=== PATIENT | female | born 1955 | race Caucasian/White ===

== ENCOUNTER 2017-02-10 13:23 | Emergency (ER) | payer BC ==
--- NOTE | 2017-02-10 13:29 | EDM.PDOC ---
ED HPI GENERAL MEDICAL PROBLEM - General Chief Complaint: General Stated Complaint: LOW HEMOGLOBIN Time Seen by Provider: 02/10/17 13:29 Source of Information: Reports: Patient History Limitations: Reports: No limitations - History of Present Illness INITIAL COMMENTS - FREE TEXT/NARRATIVE: 62-year-old female presents the ED after being called by her primary care physician about blood draw she haddone yesterday. Identified that her hemoglobin is low at 6.7. MCV is 67 suggesting significant iron deficiency. Patient has had about 60% of her stomach resected in the past due to peptic ulcer disease with perforation many years ago the lab work also identified incomplete treatment of her thyroid replacement with a TSH of 10.7. White count 6.1 with a normal differential platelets are normal in therapy to 6000. She reports she is O- blood type and is Rh sensitized because she did not get RhoGAM within 72 hours of one of her pregnancies. She is also vitamin D. deficient. Her level came back at 7 therefore she presents primarily for blood transfusion. She appreciates significant fatigue and dyspnea on minimal exertion. The patient has end-stage COPD still smoking a pack and a half of cigarettes per day. She reports her last colonoscopy was within the last year and was considered normal. Onset: gradual, unknown/unsure (Identify data low hemoglobin on routine laboratory drawn yesterday at the clinic.) Duration: Chronic Severity: moderate Improves with: Reports: Rest Worsens with: Reports: Movement (Walking up stairs is difficult as she becomes extremely short of breath.) Context: Denies: Activity, Exercise, Lifting, Sick contact, Trauma Associated Symptoms: Reports: cough, cough w sputum (Chronic smokers cough. Wound sputum almost every morning. His inhaler at least twice daily. Has end- stage COPD. Continues to smoke a pack and half cigarettes per day.), malaise, weakness (Place of really easy.), other (Does have bilateral lower extremity pain in her legs and restless legs.). 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: Reports: Other (see below) (Does not take NSAIDs.) - Related Data Allergies Allergy/AdvReac Type Severity Reaction Status Date / Time No Known Allergies Allergy Verified 02/10/17 13:35 Home Meds: Home Meds Albuterol [IJD: Ventolin HFA] 2 puff INH ASDIRECTED PRN 02/10/17 [History] Cholecalciferol (Vitamin D3) [Vitamin D3] 10,000 unit PO DAILY #42 capsule 02/10 [Rx] Ferrous Sulfate [Iron] 325 mg PO TUFR 02/10/17 [History] Fluticasone/Vilanterol [Breo Ellipta 200-25 Mcg INH] 1 puff INH DAILY 02/10/17 [ History] Levothyroxine Sodium [Levo-T] 150 mcg PO DAILY #90 tablet 02/10/17 [Rx] Levothyroxine Sodium [Levothyroxine Sodium] 100 mcg PO DAILY 02/10/17 [History] Magnesium Oxide [Magnesium] 500 mg PO ASDIRECTED PRN 02/10/17 [History] Montelukast [Singulair] 10 mg PO DAILY 02/10/17 [History] guaiFENesin [Mucus Relief] 400 mg PO DAILY 02/10/17 [History] Past Medical History Respiratory History: Reports: Bronchitis, recurrent, COPD (End-stage COPD. Continues to smoke cigarettes. Not on home oxygen therapy) Gastrointestinal History: Reports: GERD (Uses Prilosec daily. For reflux disease. Occasionally has to use TUMS or Rolaids), PUD (Referred of peptic ulcer disease and apparently had 60% of her stomach removed in the past. This is in the 70s.), Other (see below) Musculoskeletal History: Reports: Arthritis, Back pain, chronic (Recently identified to be vitamin D deficient.), Osteoarthritis, Osteoporosis, Other ( see below) Endocrine/Metabolic History: Reports: Hypothyroidism (TSH done yesterday is 10.7 indicating that she is inadequately treated with supplement.), Osteopenia, Osteoporosis, Vitamin D deficiency - Past Surgical History GI Surgical History: Reports: Cholecystectomy, Colonoscopy (Last one was within the last year no polyps identified), Other (see below) (Emergency surgery for perforated gastric ulcer in the 70s required removal of about 60% of her stomach.) Social & Family History - Living Situation & Occupation Living situation: Reports: Occupation: retired ED ROS GENERAL - Review of Systems Review Of Systems: See Below Constitutional: Reports: malaise, weakness, fatigue. Denies: fever, chills, decreased appetite, weight loss HEENT: Reports: No symptoms, Glasses Respiratory: Reports: Shortness of Breath, Cough (Chronically chronically due to COPD and chronic bronchitis), Sputum. Denies: Hemoptysis (Usually brown) Cardiovascular: Reports: Dyspnea on exertion (Chronic), Lightheadedness. Denies : Blood pressure problem, Claudication, Orthopnea Endocrine: Reports: fatigue (Has to watch how fat she gets up at times.) GI/Abdominal: Reports: Black stool (Only when she takes her iron pills.). Denies: Abdominal pain, Anorexia, Bloody stool, Constipation, Difficulty swallowing, Distension, Flatus, Hematemesis, Hematochezia, Melena, Nausea, Other : Reports: frequency Musculoskeletal: Reports: back pain Skin: Reports: pallor Neurological: Reports: Dizziness (Occasional), Paresthesia (In her feet at times.), Other (Aching pain in the calves and bones in her legs with some restless leg syndrome.) Psychiatric: Reports: No symptoms Hematologic/Lymphatic: Reports: no symptoms ED EXAM, GENERAL - Physical Exam Exam: See Below Exam Limited By: No limitations General Appearance: alert, WD/WN, no apparent distress Eye Exam: bilateral eye: other (Bilateral blepharal pallor.) Ears: normal TMs Nose: other (Skin grafting has been done to her nose because of skin cancer in the past) Throat/Mouth: Normal inspection, Normal oropharynx. No: Normal teeth Head: atraumatic, normocephalic Neck: normal inspection, supple, non-tender, full range of motion. No: carotid bruit, lymphadenopathy (L), lymphadenopathy (R) Respiratory/Chest: decreased breath sounds (Sounds are diminished in the posterior 60% a lung ang. No adventitial sounds were noted at this time). No : lungs clear, normal breath sounds, chest non-tender, respiratory distress, rhonchi, wheezing Cardiovascular: no edema, no gallop, no murmur (Grade 1-2 systolic ejection murmur heard best at the left lower sternal border.). No: normal peripheral pulses Peripheral Pulses: 0: posterior tibial (L), posterior tibial (R), dorsalis pedis (L), dorsalis pedis (R) GI/Abdominal: normal bowel sounds, soft, non tender, no organomegaly Back Exam: normal inspection, full range of motion. No: CVA tenderness (L), CVA tenderness (R) Extremities: normal inspection, normal range of motion, non-tender, no pedal edema Neurological: alert, oriented, CN II-XII intact, normal cognition, normal gait Psychiatric: normal affect, normal mood Skin Exam: Warm, Dry, Intact, Pallor (Mild pallor.) Course - Vital Signs Last Recorded V/S: Last Vital Signs Temp 36.9 C 02/10/17 13:32 Pulse 78 02/10/17 16:05 Resp 17 02/10/17 16:05 BP 132/106 H 02/10/17 16:05 Pulse Ox 97 02/10/17 16:05 - Orders/Labs/Meds Orders: Active Orders 24 hr Category Date Time Status PACKED CELLS [RED BLOOD CELLS LP] [BBK] Stat Lab 02/10/17 14:10 Results TYPE AND SCREEN [BBK] Stat Lab 02/10/17 14:10 Results Transfuse PRBC [Transfuse Red Blood Cells] [COMM] Oth 02/10/17 13:52 Ordered Urgent Labs: Laboratory Tests 02/10/17 02/10/17 02/10/17 Range/Units 14:10 14:10 14:10 WBC 4.42 (3.98-10.04) K/mm3 RBC 3.73 L (3.98-5.22) M/mm3 Hgb 6.9 L* (11.2-15.7) gm/L Hct 27.3 L (34.1-44.9) % MCV 73.2 L (79.4-94.8) fl MCH 18.5 L (25.6-32.2) pg MCHC 25.3 L (32.2-35.5) g/dl RDW Std Deviation 53.2 H (36.4-46.3) fL Plt Count 380 H (182-369) K/mm3 MPV 8.8 L (9.4-12.3) fl Neutrophils % (Manual) 45 (40-60) % Band Neutrophils % 0 (0-10) % Lymphocytes % (Manual) 41 H (20-40) % Atypical Lymphs % 0 % Monocytes % (Manual) 11 H (2-10) % Eosinophils % (Manual) 3 (0.7-5.8) % Basophils % (Manual) 0 L (0.1-1.2) Platelet Estimate Adequate Plt Morphology Comment See note Polychromasia 1+ slight Poikilocytosis 3+ marked Anisocytosis 2+ moderate Microcytosis 2+ moderate Macrocytosis 1+ slight Target Cells 1+ slight Tear Drop Cells 1+ slight Ovalocytes 1+ slight Stomatocytes 2+ moderate RBC Morph Comment Abnormal PT 11.0 (8.0-13.0) SECONDS INR 1.01 Sodium 140 (136-145) mEq/L Potassium 4.2 (3.5-5.1) mEq/L Chloride 104 (98-107) mEq/L Carbon Dioxide 26 (21-32) mEq/L Anion Gap 14.2 (5-15) BUN 9 (7-18) mg/dL Creatinine 0.7 (0.55-1.02) mg/dL Est Cr Clr Drug Dosing 54.78 mL/min Estimated GFR (MDRD) > 60 (>60) mL/min BUN/Creatinine Ratio 12.9 L (14-18) Glucose 92 (80-115) mg/dL Calcium 8.8 (8.5-10.1) mg/dL Iron (50-170) ug/dL TIBC (100-400) ug/dL % Saturation (20-55) % Transferrin (202-364) mg/dL Ferritin (8-252) ng/ml Total Bilirubin 0.4 (0.2-1.0) mg/dL AST 20 (15-37) U/L ALT 23 (14-59) U/L Alkaline Phosphatase 76 (46-116) U/L B-Natriuretic Peptide (0-100) pg/mL Total Protein 6.8 (6.4-8.2) g/dl Albumin 3.6 (3.4-5.0) g/dl Globulin 3.2 gm/dL Albumin/Globulin Ratio 1.1 (1-2) Free T4 (0.76-1.46) ng/dL TSH 3rd Generation 9.815 H (0.358-3.74) uIU/mL H. pylori IgG Antibody (NEGATIVE) Blood Type Crossmatch 02/10/17 02/10/17 02/10/17 Range/Units 14:10 14:10 14:10 WBC (3.98-10.04) K/mm3 RBC (3.98-5.22) M/mm3 Hgb (11.2-15.7) gm/L Hct (34.1-44.9) % MCV (79.4-94.8) fl MCH (25.6-32.2) pg MCHC (32.2-35.5) g/dl RDW Std Deviation (36.4-46.3) fL Plt Count (182-369) K/mm3 MPV (9.4-12.3) fl Neutrophils % (Manual) (40-60) % Band Neutrophils % (0-10) % Lymphocytes % (Manual) (20-40) % Atypical Lymphs % % Monocytes % (Manual) (2-10) % Eosinophils % (Manual) (0.7-5.8) % Basophils % (Manual) (0.1-1.2) Platelet Estimate Plt Morphology Comment Polychromasia Poikilocytosis Anisocytosis Microcytosis Macrocytosis Target Cells Tear Drop Cells Ovalocytes Stomatocytes RBC Morph Comment PT (8.0-13.0) SECONDS INR Sodium (136-145) mEq/L Potassium (3.5-5.1) mEq/L Chloride (98-107) mEq/L Carbon Dioxide (21-32) mEq/L Anion Gap (5-15) BUN (7-18) mg/dL Creatinine (0.55-1.02) mg/dL Est Cr Clr Drug Dosing mL/min Estimated GFR (MDRD) (>60) mL/min BUN/Creatinine Ratio (14-18) Glucose (80-115) mg/dL Calcium (8.5-10.1) mg/dL Iron 15 L (50-170) ug/dL TIBC 573 H (100-400) ug/dL % Saturation 3 L (20-55) % Transferrin 458 H (202-364) mg/dL Ferritin 11 (8-252) ng/ml Total Bilirubin (0.2-1.0) mg/dL AST (15-37) U/L ALT (14-59) U/L Alkaline Phosphatase (46-116) U/L B-Natriuretic Peptide 206 H (0-100) pg/mL Total Protein (6.4-8.2) g/dl Albumin (3.4-5.0) g/dl Globulin gm/dL Albumin/Globulin Ratio (1-2) Free T4 (0.76-1.46) ng/dL TSH 3rd Generation (0.358-3.74) uIU/mL H. pylori IgG Antibody (NEGATIVE) Blood Type O NEGATIVE Crossmatch See Detail 02/10/17 02/10/17 Range/Units 14:10 14:10 WBC (3.98-10.04) K/mm3 RBC (3.98-5.22) M/mm3 Hgb (11.2-15.7) gm/L Hct (34.1-44.9) % MCV (79.4-94.8) fl MCH (25.6-32.2) pg MCHC (32.2-35.5) g/dl RDW Std Deviation (36.4-46.3) fL Plt Count (182-369) K/mm3 MPV (9.4-12.3) fl Neutrophils % (Manual) (40-60) % Band Neutrophils % (0-10) % Lymphocytes % (Manual) (20-40) % Atypical Lymphs % % Monocytes % (Manual) (2-10) % Eosinophils % (Manual) (0.7-5.8) % Basophils % (Manual) (0.1-1.2) Platelet Estimate Plt Morphology Comment Polychromasia Poikilocytosis Anisocytosis Microcytosis Macrocytosis Target Cells Tear Drop Cells Ovalocytes Stomatocytes RBC Morph Comment PT (8.0-13.0) SECONDS INR Sodium (136-145) mEq/L Potassium (3.5-5.1) mEq/L Chloride (98-107) mEq/L Carbon Dioxide (21-32) mEq/L Anion Gap (5-15) BUN (7-18) mg/dL Creatinine (0.55-1.02) mg/dL Est Cr Clr Drug Dosing mL/min Estimated GFR (MDRD) (>60) mL/min BUN/Creatinine Ratio (14-18) Glucose (80-115) mg/dL Calcium (8.5-10.1) mg/dL Iron (50-170) ug/dL TIBC (100-400) ug/dL % Saturation (20-55) % Transferrin (202-364) mg/dL Ferritin (8-252) ng/ml Total Bilirubin (0.2-1.0) mg/dL AST (15-37) U/L ALT (14-59) U/L Alkaline Phosphatase (46-116) U/L B-Natriuretic Peptide (0-100) pg/mL Total Protein (6.4-8.2) g/dl Albumin (3.4-5.0) g/dl Globulin gm/dL Albumin/Globulin Ratio (1-2) Free T4 (0.76-1.46) ng/dL TSH 3rd Generation (0.358-3.74) uIU/mL H. pylori IgG Antibody Negative (NEGATIVE) Blood Type Crossmatch Meds: Medications Discontinued Medications Generic Name Dose Route Start Last Admin Trade Name Christianne PRN Reason Stop Dose Admin Sodium Chloride 1,000 mls @ 100 mls/hr 02/10/17 13:45 02/10/17 14:16 Normal Saline IV 100 mls/hr ASDIRECTED SANTIAGO Administration - Radiology Interpretation Free Text/Narrative:: 62-year-old female presents the ED at the request of her primary care physician. She had labs drawn through the [facility] in clinic yesterday and identified the hemoglobin at 6.7. Her white count was 6.1 with a normal differential and platelets were also normal at 3 56,000. The MCV is very low at 67 suggesting a chronic iron deficiency anemia. Patient has been using iron tablets intermittently for several years. She's had peptic ulcer disease in the past which required 60% removal of her stomach and most likely does not absorb any iron. Also identified that she is being treated for thyroid disorder and TSH is currently 10.77 and therefore it certainly needs a increased dose of replacement therapy. Also she is on B. vitamin D. deficient with a number of 7 which is severely deficient. The plan here is to provide her with 3 units of packed cells with a become available. I will alter her thyroid replacement hormone and get her started on a higher dose. Also will start her on vitamin D supplementation. She needs an upper GI endoscopy by the sounds of things to rule out any sinister pathology in the upper GI tract it would cause her to be so severely iron deficient. I did order her serum transferrin, ferritin , total iron binding capacity and iron levels. - Re-Assessments/Exams Free Text/Narrative Re-Assessment/Exam: 02/10/17 15:29 informed by the lab that the patient has to many antibodies to be able to find any suitable units for crossmatch for her. Therefore her blood will be sent to [place] to the blood bank and allow let them spine 3 units of packed red blood cells that would be suitable for transfusion. Tentatively they would be ready tomorrow night. Patient will therefore return about 9:00 on February 12 for potential transfusion as an outpatient. Paperwork was signed in this regard. In regards to her hypothyroidism with a TSH greater than 10 I increased her levothyroxine to 150 mcg daily for 100 mcg daily. She'll need a recheck on TSH in 8 weeks time. Thirdly vitamin D deficiency was severe with a level of only 7. She was placed on cholecalciferol 10,000 units orally for the next 6 weeks daily. Then she will switch to 1500 units daily. At some point time the patient is going to need intravenous iron. She is not absorbing iron as her percent of iron was only 3. Both the transferrin and ferritin levels were elevated as was the total iron binding capacity. I discussed this with her primary care provider Latisha out and returning clinic and she will arrange for followup with one of the internal medicine doctors to arrange IV benefit her treatments that will be calculated by pharmacy as to how many and how much iron infusion she requires. This probably will correct her anemia problem on a more permanent basis. Departure - Departure Time of Disposition: 15:36 Disposition: Home, Self-Care 01 Condition: fair Clinical Impression: Hypothyroidism (acquired), Vitamin D deficient osteomalacia, Iron deficiency anemia following bariatric surgery Anemia Qualifiers: Anemia type: iron deficiency Iron deficiency anemia type: unspecified iron deficiency Qualified Code(s): D50.9 - Iron deficiency anemia, unspecified Prescriptions: Cholecalciferol (Vitamin D3) [Vitamin D3] 10,000 unit PO DAILY #42 capsule Levothyroxine Sodium [Levo-T] 150 mcg PO DAILY #90 tablet Instructions: Anemia, Nonspecific, Hypothyroidism, Vitamin D Deficiency Referrals: Latisha Jewell NP [Primary Care Provider] - Forms: ED Department Discharge Additional Instructions: Evaluation in the emergency today primarily due to identification of low blood or anemia. Hemoglobin today is 6.9. He therefore required 3 units of packed red blood cells transfused continue when they become available. Multiple antibodies have been identified in your blood from previous blood transfusions. 3 units of blood should be available from the blood bank by February 12 in the morning. You're to arrive at the hospital around 9:00 in the morning and they will find a place in the hospital where he will be transfused 3 units each over about 2 hours. Plan on being in the hospital for about 8 hours. Also identified in adequate treatment of your hypothyroidism. Dosage of your levothyroxine was increased to 150 mcg per day 100 mcg per day. He could still usual 100 mcg tablets by taking one and a half of these daily until they're used up until the prescription for the 150 mcg tablet. Also identified significant vitamin D deficiency. Prescription written for 10,000 unit tablet to be taken once daily for the next 6 weeks and after this it can be reduced to 1500 international units once daily for the rest of your life. He was found to be significantly iron deficient and iron tablets orally are not bring your level of iron up in your blood you will require intravenous iron supplements. Please discuss this with your personal physician. This can take this too could be arranged through the hospital infusion program. - My Orders Last 24 Hours: My Active Orders 02/10/17 13:52 Transfuse PRBC [Transfuse Red Blood Cells] [COMM] Urgent 02/10/17 14:10 PACKED CELLS [RED BLOOD CELLS LP] [BBK] Stat TYPE AND SCREEN [BBK] Stat - Assessment/Plan Last 24 Hours: My Active Orders 02/10/17 13:52 Transfuse PRBC [Transfuse Red Blood Cells] [COMM] Urgent 02/10/17 14:10 PACKED CELLS [RED BLOOD CELLS LP] [BBK] Stat TYPE AND SCREEN [BBK] Stat
[2017-02-10] MEDS ORDERED: Sodium Chloride 0.9% 1,000 ML IV SCH (13:45)
[2017-02-10 16:28] VITALS: BP 132/106
== END 2017-02-10 16:05 | disposition home or self-care (01) ==
LOC: JD.ED 13:23
DX: D64.9 Anemia, unspecified (principal); J44.9 Chronic obstructive pulmonary disease, unspecified; E03.9 Hypothyroidism, unspecified; D50.9 Iron deficiency anemia, unspecified; E55.9 Vitamin D deficiency, unspecified; M83.9 Adult osteomalacia, unspecified; Z79.899 Other long term (current) drug therapy; F17.210 Nicotine dependence, cigarettes, uncomplicated; M19.90 Unspecified osteoarthritis, unspecified site; G89.29 Other chronic pain; Z98.84 Bariatric surgery status
CPT/HCPCS: 36415; 80053; 82728; 83540; 83880; 84439; 84443; 84466; 85025; 85610; 86677; 96360; 96361; 99284; J7040

== ENCOUNTER 2019-01-24 08:32 | Emergency (ER) | payer OTHER, MEDICARE ==
[2019-01-24] MEDS ORDERED: Sodium Chloride 0.9% 1,000 ML IV SCH (08:45)
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
--- NOTE | 2019-01-24 09:14 | CT ---
Head CT Technique: Multiple axial sections through the brain were obtained. Intravenous contrast was not utilized. Comparison: No prior intracranial imaging. Findings: Soft tissue hematoma is seen within the posterior left scalp as well as more superiorly over the left sided convexity. Ventricles along with basal cisterns and sulci over the convexities are within normal limits for the patient's age. Minimal diminished density is noted within portions of the periventricular white matter compatible with small vessel ischemic demyelination change. No other abnormal parenchymal densities are seen. No evidence of intracranial hemorrhage. No midline shift or mass effect is seen. Bone window settings were reviewed which show no acute calvarial abnormality. Visualized sinuses are clear. Impression: 1. Several scalp hematomas as noted above. 2. Mild senescent change. 3. No acute intracranial abnormality is identified. No skull fracture is seen. Diagnostic code #3
--- NOTE | 2019-01-24 09:14 | CR ---
Left hand: Four views of the left hand were obtained. Comparison: No previous study. Severe degenerative change is noted with the CMC joint of the thumb. Diffuse joint space narrowing is noted between the carpal bones as well as within the MCP, DIP and PIP joints. Slight chondrocalcinosis is noted within the triangular fibrocartilage. Bony structures are osteopenic. No acute fracture or other bony abnormality is identified. Impression: 1. Degenerative change and osteopenia. 2. No acute abnormality is appreciated on left hand exam. Diagnostic code #2
[2019-01-24] MEDS ORDERED: Diphtheria,Pertussis(Acell),Tetanus Vaccine 0.5 ML Syringe IM ONE (09:24)
[2019-01-24 12:45] VITALS: BP 158/93
== END 2019-01-24 11:10 | disposition home or self-care (01) ==
LOC: JD.ED 08:32
DX: S01.01XA Laceration without foreign body of scalp, initial encounter (principal); S60.222A Contusion of left hand, initial encounter; Z23 Encounter for immunization; K21.9 Gastro-esophageal reflux disease without esophagitis; E03.9 Hypothyroidism, unspecified; J44.9 Chronic obstructive pulmonary disease, unspecified; Z79.899 Other long term (current) drug therapy; Z85.828 Personal history of other malignant neoplasm of skin; V89.2XXA Person injured in unspecified motor-vehicle accident, traffic, initial encounter
CPT/HCPCS: 12001; 36415; 70450; 73130; 80053; 82150; 85007; 85027; 90471; 90700; 96360; 99285; J7040; 99284

== ENCOUNTER 2019-02-02 10:06 | Emergency (ER) | payer MEDICARE, OTHER | END 2019-02-02 10:20 | disposition home or self-care (01) | LOC: JD.ED 10:06 | DX: S01.01XD Laceration without foreign body of scalp, subsequent encounter (principal); V89.2XXD Person injured in unspecified motor-vehicle accident, traffic, subsequent encounter ==

== ENCOUNTER 2021-04-29 10:47 | Day surgery (SDC) | payer MEDICARE ==
[2021-04-29] MEDS: Polymyxin B/Trimethoprim 10 ML Bottle EYELF SCH ×4 (10:42→13:20)
--- NOTE | 2021-04-29 10:44 | PCM.PREANE ---
Preanesthetic Assessment - Procedure Proposed Procedure: left eye cataract - Anesthesia/Transfusion/Family Hx Anesthesia History: Prior Anesthesia Without Reaction Family History of Anesthesia Reaction: No Transfusion History: Prior Transfusion Without Reaction - Review of Systems General: No Symptoms Pulmonary: Shortness of Breath, Cough (asthma) Cardiovascular: No Symptoms Gastrointestinal: No Symptoms Neurological: No Symptoms Other: Reports: Thyroid Problems, Sinus Problem - Physical Assessment NPO Status Date: 04/28/21 NPO Status Time: 23:00 Vital Signs: 130/69 86 94% 18 99.6 Height: 5 ft 4 in Weight: 41.277 kg ASA Class: 3 Mental Status: Alert & Oriented x3 Airway Class: Mallampati = 1 Dentition: Reports: Normal Dentition Thyro-Mental Finger Breadths: 3 Mouth Opening Finger Breadths: 3 ROM/Head Extension: Full Lungs: Clear to Auscultation, Normal Respiratory Effort, Decreased Breath Sounds Cardiovascular: Regular Rate, Regular Rhythm - Allergies Allergies/Adverse Reactions: Allergies Allergy/AdvReac Type Severity Reaction Status Date / Time No Known Allergies Allergy Verified 01/24/19 08:41 - Blood Blood Available: No - Acknowledgements Anesthesia Type Planned: MAC Pt an Appropriate Candidate for the Planned Anesthesia: Yes Alternatives and Risks of Anesthesia Discussed w Pt/Guardian: Yes Pt/Guardian Understands and Agrees with Anesthesia Plan: Yes PreAnesthesia Questionnaire HEENT History: Reports: Impaired Vision, Other (See Below) Other HEENT History: wears eyeglasses, 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: Musculoskeletal History: Reports: Arthritis, Back Pain, Chronic, Other (See Below), Osteoporosis, Osteoarthritis Neurological History: Reports: Migraines Psychiatric History: Reports: None Endocrine/Metabolic History: Reports: Hypothyroidism, Osteoporosis, Osteopenia, Vitamin D Deficiency Hematologic History: Reports: Anemia, Blood Transfusion(s), Iron Deficiency Oncologic (Cancer) History: Reports: Squamous Cell Carcinoma Dermatologic History: Reports: Other (See Below) Other Dermatologic History: skin CA - Infectious Disease History Infectious Disease History: Reports: Chicken Pox, Measles - Past Surgical History GI Surgical History: Reports: Cholecystectomy, Colonoscopy, Other (See Below) - SUBSTANCE USE Tobacco Use Status *Q: Current Every Day Tobacco User Tobacco Use Within Last Twelve Months: Cigarettes Second Hand Smoke Exposure: Yes Days Per Week of Alcohol Use: 5 Number of Drinks Per Day: 2 Total Drinks Per Week: 10 Recreational Drug Use History: No - HOME MEDS Home Medications: Home Meds Albuterol [IJD: Ventolin HFA] 2 puff INH ASDIRECTED PRN 02/10/17 [History] Cholecalciferol (Vitamin D3) [Vitamin D3] 10,000 unit PO DAILY #42 capsule 02/10/17 [Rx] Ferrous Sulfate [Iron] 325 mg PO TUFR 02/10/17 [History] Fluticasone/Vilanterol [Breo Ellipta 200-25 Mcg INH] 1 puff INH DAILY 02/10/17 [History] Levothyroxine Sodium [Levo-T] 150 mcg PO DAILY #90 tablet 02/10/17 [Rx] Magnesium Oxide [Magnesium] 500 mg PO ASDIRECTED PRN 02/10/17 [History] Montelukast [Singulair] 10 mg PO DAILY 02/10/17 [History] guaiFENesin [Mucus Relief] 400 mg PO DAILY 02/10/17 [History] - CURRENT (IN HOUSE) MEDS Current Meds: Current Medications Brimonidine Tartrate (Brimonidine 0.2% Ophth Soln 5 Ml Bottle) 0 ml EYELF ASDIRECTED SANTIAGO Stop: 04/29/21 18:00 Cefuroxime Sodium (Cefuroxime 10 Mg/Ml Syringe) 0 mg EYELF ASDIRECTED SANTIAGO Stop: 04/29/21 18:00 Lidocaine HCl (Lidocaine 1% Pf 2 Ml Sdv) 0 ml INJECT ASDIRECTED SANTIAGO Stop: 04/29/21 18:00 Phenylephrine HCl (Phenylephrine 2.5% Ophth Soln 2 Ml Bot) 0 ml EYELF ASDIRE CTED SANTIAGO Stop: 04/29/21 18:00 Pilocarpine HCl (Pilocarpine 4% Ophth Soln 15 Ml Bot) 0 ml EYELF ASDIRECTED SANTIAGO Stop: 04/29/21 18:00 Polymyxin/Trimethoprim Sulfate (Polymyxin B/Trimethoprim 10 Ml Bottle) 0 ml EYELF ASDIRECTED SANTIAGO Stop: 04/29/21 18:00 Tetracaine HCl (Tetracaine Hcl/Pf 0.5% 4 Ml Bottle) 0 ml EYEBOTH ASDIRECTED SANTIAGO Stop: 04/29/21 18:00 Tropicamide (Tropicamide 1% Ophth Soln 15 Ml Bottle) 0 ml EYELF ASDIRECTED SANTIAGO Stop: 04/29/21 18:00
[~2021-04-29 10:47] MED LIST: Lidocaine 1% PF 2 ML SDV INJECT SCH
[2021-04-29] MEDS: Brimonidine 0.2% Ophth Soln 5 ML Bottle EYELF SCH ×4 (10:47→13:19)
[2021-04-29] MEDS: Phenylephrine 2.5% Ophth Soln 2 ML Bot EYELF SCH ×5 (10:54→12:23)
[2021-04-29] MEDS: Tropicamide 1% Ophth Soln 15 ML Bottle EYELF SCH ×4 (10:58→11:50)
[2021-04-29 10:59] VITALS: PULSE 89
[2021-04-29] MEDS: Tetracaine HCl/PF 0.5% 4 ML Bottle EYEBOTH SCH ×5 (11:55→13:19)
[2021-04-29] MEDS: Cefuroxime 10 MG/ML SYRINGE EYELF SCH ×2 (12:41→13:21)
[2021-04-29] MEDS: Pilocarpine 4% Ophth Soln 15 ML Bot EYELF SCH ×2 (12:41→13:20)
--- NOTE | 2021-04-29 12:47 | PCM48HPAN ---
Post Anesthesia Note - EVALUATION WITHIN 48HRS OF ANESTHETIC Vital Signs in Normal Range: Yes Patient Participated in Evaluation: Yes Respiratory Function Stable: Yes Airway Patent: Yes Cardiovascular Function Stable: Yes Hydration Status Stable: Yes Pain Control Satisfactory: Yes Nausea and Vomiting Control Satisfactory: Yes Mental Status Recovered: Yes Vital Signs: Last Vital Signs Temp 99.4 F 04/29/21 10:45 Pulse 89 04/29/21 10:45 Resp 18 04/29/21 10:45 BP 130/69 04/29/21 10:45 Pulse Ox 93 L 04/29/21 10:45
[2021-04-29 12:56] VITALS: BP 132/74
== END 2021-04-29 12:55 | disposition home or self-care (01) ==
LOC: JD.SDS 10:47
PROVIDERS: ATTEND Ophthalmology
DX: H25.813 Combined forms of age-related cataract, bilateral (principal); J45.909 Unspecified asthma, uncomplicated; E05.90 Thyrotoxicosis, unspecified without thyrotoxic crisis or storm; F17.200 Nicotine dependence, unspecified, uncomplicated; Z79.899 Other long term (current) drug therapy; Z79.890 Hormone replacement therapy; Z98.890 Other specified postprocedural states
CPT/HCPCS: 66984; J0697; C1780

== ENCOUNTER 2021-05-27 09:04 | Day surgery (SDC) | payer MEDICARE ==
[~2021-05-27 09:04] MED LIST changes: +Cefuroxime 10 MG/ML SYRINGE EYERT SCH; +Pilocarpine 4% Ophth Soln 15 ML Bot EYERT SCH
[2021-05-27] MEDS: Polymyxin B/Trimethoprim 10 ML Bottle EYERT SCH ×3 (10:18→11:57)
[2021-05-27] MEDS: Brimonidine 0.2% Ophth Soln 5 ML Bottle EYERT SCH ×3 (10:23→11:57)
[2021-05-27] MEDS: Phenylephrine 2.5% Ophth Soln 2 ML Bot EYERT SCH ×5 (10:28→11:33)
[2021-05-27] MEDS: Tropicamide 1% Ophth Soln 15 ML Bottle EYERT SCH ×4 (10:33→11:12)
--- NOTE | 2021-05-27 10:50 | PCM.PREANE ---
Preanesthetic Assessment - Procedure Proposed Procedure: right cataract - Anesthesia/Transfusion/Family Hx Anesthesia History: Prior Anesthesia Without Reaction Family History of Anesthesia Reaction: No Transfusion History: Prior Transfusion Without Reaction - Review of Systems General: No Symptoms Pulmonary: Cough (has asthma and smokes) Cardiovascular: No Symptoms Gastrointestinal: No Symptoms Neurological: No Symptoms Other: Reports: Thyroid Problems, Sinus Problem (allergies) - Physical Assessment NPO Status Date: 05/26/21 NPO Status Time: 16:30 Vital Signs: Last Vital Signs Temp 97.9 F 05/27/21 10:05 Pulse 84 05/27/21 10:05 Resp 19 05/27/21 10:05 BP 149/83 H 05/27/21 10:05 Pulse Ox 93 L 05/27/21 10:05 Height: 5 ft 4 in Weight: 41.277 kg ASA Class: 2 Mental Status: Alert & Oriented x3 Airway Class: Mallampati = 1 Dentition: Reports: Normal Dentition Thyro-Mental Finger Breadths: 3 Mouth Opening Finger Breadths: 3 ROM/Head Extension: Full Lungs: Normal Respiratory Effort, Decreased Breath Sounds, Crackles (left base) Cardiovascular: Regular Rate, Regular Rhythm - Allergies Allergies/Adverse Reactions: Allergies Allergy/AdvReac Type Severity Reaction Status Date / Time No Known Allergies Allergy Verified 05/27/21 10:23 - Blood Blood Available: No - Acknowledgements Anesthesia Type Planned: MAC Pt an Appropriate Candidate for the Planned Anesthesia: Yes Alternatives and Risks of Anesthesia Discussed w Pt/Guardian: Yes Pt/Guardian Understands and Agrees with Anesthesia Plan: Yes PreAnesthesia Questionnaire HEENT History: Reports: Impaired Vision, Other (See Below) Other HEENT History: wears eyeglasses, 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 Genitourinary History: Reports: Pyelonephritis, UTI, Recurrent [employer] History: Reports: Musculoskeletal History: Reports: Arthritis, Back Pain, Chronic, Other (See Below), Osteoporosis, Osteoarthritis Neurological History: Reports: Migraines Psychiatric History: Reports: None Endocrine/Metabolic History: Reports: Hypothyroidism, Osteoporosis, Osteopenia, Vitamin D Deficiency Hematologic History: Reports: Anemia, Blood Transfusion(s), Iron Deficiency Oncologic (Cancer) History: Reports: Squamous Cell Carcinoma Dermatologic History: Reports: Other (See Below) Other Dermatologic History: skin CA - Infectious Disease History Infectious Disease History: Reports: Chicken Pox, Measles - Past Surgical History GI Surgical History: Reports: Cholecystectomy, Colonoscopy, Other (See Below) - SUBSTANCE USE Tobacco Use Status *Q: Current Every Day Tobacco User Tobacco Use Within Last Twelve Months: Cigarettes Second Hand Smoke Exposure: Yes Days Per Week of Alcohol Use: 3 Number of Drinks Per Day: 2 Total Drinks Per Week: 6 Recreational Drug Use History: No - HOME MEDS Home Medications: Home Meds Albuterol [IJD: Ventolin HFA] 2 puff INH ASDIRECTED PRN 02/10/17 [History] Fluticasone/Vilanterol [Breo Ellipta 200-25 Mcg INH] 1 puff INH DAILY 02/10/17 [History] Levothyroxine Sodium [Levo-T] 150 mcg PO DAILY #90 tablet 02/10/17 [Rx] Montelukast [Singulair] 10 mg PO DAILY 02/10/17 [History] guaiFENesin [Mucus Relief] 400 mg PO DAILY 02/10/17 [History] Albuterol [Ventolin HFA] 1 puff INH ASDIRECTED 04/29/21 [History] - CURRENT (IN HOUSE) MEDS Current Meds: Current Medications Brimonidine Tartrate (Brimonidine 0.2% Ophth Soln 5 Ml Bottle) 0 ml EYERT ASDIRECTED SANTIAGO Stop: 05/27/21 16:00 Last Admin: 05/27/21 10:23 Dose: 1 drop Documented by: Cefuroxime Sodium (Cefuroxime 10 Mg/Ml Syringe) 0 mg EYERT ASDIRECTED SANTIAGO Stop: 05/27/21 16:00 Lidocaine HCl (Lidocaine 1% Pf 2 Ml Sdv) 0 ml INJECT ASDIRECTED SANTIAGO Stop: 05/27/21 16:00 Phenylephrine HCl (Phenylephrine 2.5% Ophth Soln 2 Ml Bot) 0 ml EYERT ASDIRECTED SANTIAGO Stop: 05/27/21 16:00 Last Admin: 05/27/21 10:38 Dose: 1 drop Documented by: Pilocarpine HCl (Pilocarpine 4% Ophth Soln 15 Ml Bot) 0 ml EYERT ASDIRECTED SANTIAGO Stop: 05/27/21 16:00 Polymyxin/Trimethoprim Sulfate (Polymyxin B/Trimethoprim 10 Ml Bottle) 0 ml EYERT ASDIRECTED SANTIAGO Stop: 05/27/21 16:00 Last Admin: 05/27/21 10:18 Dose: 1 drop Documented by: Tetracaine HCl (Tetracaine Hcl/Pf 0.5% 4 Ml Bottle) 0 ml EYEBOTH ASDIRECTED SANTIAGO Stop: 05/27/21 16:00 Tropicamide (Tropicamide 1% Ophth Soln 15 Ml Bottle) 0 ml EYERT ASDIRECTED SANTIAGO Stop: 05/27/21 16:00 Last Admin: 05/27/21 10:43 Dose: 1 drop Documented by:
[2021-05-27] MEDS: Tetracaine HCl/PF 0.5% 4 ML Bottle EYEBOTH SCH ×4 (11:17→11:42)
--- NOTE | 2021-05-27 11:58 | PCM48HPAN ---
Post Anesthesia Note - EVALUATION WITHIN 48HRS OF ANESTHETIC Vital Signs in Normal Range: Yes Patient Participated in Evaluation: Yes Respiratory Function Stable: Yes Airway Patent: Yes Cardiovascular Function Stable: Yes Hydration Status Stable: Yes Pain Control Satisfactory: Yes Nausea and Vomiting Control Satisfactory: Yes Mental Status Recovered: Yes Vital Signs: Last Vital Signs Temp 36.6 C 05/27/21 10:05 Pulse 84 05/27/21 10:05 Resp 19 05/27/21 10:05 BP 149/83 H 05/27/21 10:05 Pulse Ox 93 L 05/27/21 10:05
[2021-05-27 12:17] VITALS: BP 156/77; PULSE 76
== END 2021-05-27 12:10 | disposition home or self-care (01) ==
LOC: JD.SDS 09:04
PROVIDERS: ATTEND Ophthalmology
DX: H25.811 Combined forms of age-related cataract, right eye (principal); H35.363 Drusen (degenerative) of macula, bilateral; H35.3131 Nonexudative age-related macular degeneration, bilateral, early dry stage; H02.834 Dermatochalasis of left upper eyelid; H02.831 Dermatochalasis of right upper eyelid; H52.31 Anisometropia; F17.200 Nicotine dependence, unspecified, uncomplicated; E03.9 Hypothyroidism, unspecified; J45.909 Unspecified asthma, uncomplicated; Z98.890 Other specified postprocedural states; Z79.899 Other long term (current) drug therapy; Z96.1 Presence of intraocular lens; Z79.890 Hormone replacement therapy
CPT/HCPCS: 66984; J0697; C1780